=== PATIENT | female | born 1980 | race Caucasian/White ===

== ENCOUNTER 2017-02-22 11:43 | Emergency (ER) | payer MEDICAID ==
[~2017-02-22] VITALS: Ht 167.6 cm; Wt 91.2 kg
[2017-02-22 11:48] VITALS: BP 119/70; PULSE 94; RESP 16; TEMP 97.6; O2SAT 98
--- NOTE | 2017-02-22 11:54 | NUR ---
Patient to ER bed 7 to gown for evaluation. Side rails up. Report given to Jaime JOSEPH.
--- NOTE | 2017-02-22 12:00 | NUR ---
Pt. to ER AAOx4 from home presented C/O vaginal bleed noted about an hour ago, states no active bleeding however single episode of vaginal blood clot, states 16 weeks , states had US on February 14, denies any pain denies N/V/D, clear speech, follows commands
--- NOTE | 2017-02-22 12:06 | NUR ---
ER Dr. Baird at bedside examining patient.
[2017-02-22 12:19] LABS: BASOPHILS % (AUTO) 0.3 % (0.0-2.0); EOSINOPHILS # (AUTO) 0.1 K/uL (0.0-0.4); EOSINOPHILS % (AUTO) 1.2 % (0.0-4.0); HEMATOCRIT 34.2 % (36-48); HEMOGLOBIN 11.6 g/dL (12.0-16.0); LYMPHOCYTES # (AUTO) 1.5 K/uL (1.0-5.5); LYMPHOCYTES % (AUTO) 22.5 % (20.5-51.5); MEAN CORPUSCULAR HEMOGLOBIN 31 pg (27-31); MEAN CORPUSCULAR HGB CONC 34 % (32-36); MEAN CORPUSCULAR VOLUME 90 fL (79.0-98.0); MONOCYTES # (AUTO) 0.5 K/uL (0.0-1.0); MONOCYTES % (AUTO) 6.7 % (1.7-9.3); NEUTROPHILS # (AUTO) 4.8 K/uL (1.8-7.7); NEUTROPHILS % (AUTO) 69.3 % (40.0-70.0); PLATELET COUNT (AUTO) 277 K/uL (130-430); RED BLOOD CELL COUNT(AUTO) 3.79 MIL/uL (4.2-6.2); RED CELL DISTRIBUTION WIDTH 13.9 % (9.0-15.0); WHITE BLOOD COUNT (AUTO) 6.9 K/uL (4.8-10.8)
[2017-02-22 12:30] LABS: CALCIUM 8.7 mg/dL (8.4-11.0); CREATININE 0.75 mg/dL (0.55-1.30); POTASSIUM 3.9 mmol/L (3.5-5.1)
[2017-02-22 12:31] LABS: INR 0.9 (0.8-1.2); PROTHROMBIN TIME 9.7 SECS (9.5-12.5)
--- NOTE | 2017-02-22 12:46 | NUR ---
TAKEN TO ULTRASOUND VIA WHEELCHAIR
[2017-02-22 12:56] LABS: ALBUMIN 3.2 g/dL (3.4-4.8); TOTAL BILIRUBIN 0.2 mg/dL (0.0-1.0); TOTAL PROTEIN, SERUM 6.6 g/dL (6.4-8.3)
[2017-02-22 13:15] LABS: BILIRUBIN,URINE NEGATIVE (NEGATIVE); BLOOD, URINE 3+ (NEGATIVE); CLARITY/URINE SL CLOUDY (CLEAR); COLOR,URINE YELLOW (YELLOW); GLUCOSE,URINE NEGATIVE (NEGATIVE); KETONES,URINE NEGATIVE (NEGATIVE); LEUKOCYTE ESTERASE ,URINE 1+ (NEGATIVE); NITRITE, URINE NEGATIVE (NEGATIVE); PH,URINE 5.5 (5.0-8.0); PROTEIN URINE NEGATIVE (NEGATIVE); UROBILINOGEN,URINE 0.2 (0.2-1.0)
--- NOTE | 2017-02-22 13:15 | NUR ---
PT. BACK TO BED 7 FROM [facility]
[2017-02-22 13:24] LABS: BACTERIA,URINE FEW /HPF (None Seen)
[2017-02-22 13:25] LABS: CALCIUM OXALATE CRYSTALS,UR >100 /HPF (None Seen); MUCUS,URINE None Seen /LPF (None Seen)
--- NOTE | 2017-02-22 14:00 | NUR ---
Dr. Baird at bedside for pelvic exam
[2017-02-22 14:40] VITALS: BP 120/67; PULSE 78; RESP 16; TEMP 97.6; O2SAT 98
--- NOTE | 2017-02-22 14:40 | NUR ---
Note undone in EDM - 02/22/17 at 1442 by [email or web address] Patient given written and verbal discharge instructions and verbalizes understanding. ER MD Dr. Baird discussed with patient the results and treatment provided. Patient in stable condition. ID arm band removed. Rx of nitrofurantoin given. Patient educated on pain management and to follow up with PMD. Pain Scale 0/10 Opportunity for questions provided and answered.
== END 2017-02-22 14:40 | disposition home or self-care (01) ==
LOC: SED 11:43
DX: O20.0 Threatened abortion (principal); O23.42 Unspecified infection of urinary tract in pregnancy, second trimester; O99.342 Other mental disorders complicating pregnancy, second trimester; Z3A.16 16 weeks gestation of pregnancy; Z86.14 Personal history of Methicillin resistant Staphylococcus aureus infection; Z91.011 Allergy to milk products
CPT/HCPCS: 36415; 76805-TC; 80053; 81000-TC; 84702-TC; 85025; 85610-TC; 85730-TC; 86900; 86901; 87086; 99285